=== PATIENT | female | born 1995 | race Caucasian/White ===

== ENCOUNTER 2017-06-26 12:05 | Emergency (ER) | payer OTHER ==
[~2017-06-26] VITALS: Ht 144.8 cm; Wt 80.0 kg
[2017-06-26] MEDS ORDERED: OXYCODONE HCL/ACETAMINOPHEN 5/325MG TABLET PO ONE (15:15)
[2017-06-26 16:37] LABS: HCG SCREEN NEGATIVE
[2017-06-26 16:58] VITALS: BP 124/86
== END 2017-06-26 17:01 | disposition home or self-care (01) ==
LOC: ER 15:39
DX: S00.83XA Contusion of other part of head, initial encounter (principal); J45.909 Unspecified asthma, uncomplicated; F12.10 Cannabis abuse, uncomplicated; Z90.710 Acquired absence of both cervix and uterus; Y04.0XXA Assault by unarmed brawl or fight, initial encounter; Y93.89 Activity, other specified; Y92.29 Other specified public building as the place of occurrence of the external cause
CPT/HCPCS: 70486; 84703; 99285